=== PATIENT | male | born 1960 | race Caucasian/White ===

== ENCOUNTER 2022-07-13 10:29 | Observation (INO) ==
--- NOTE | 2022-06-16 11:20 | PAT Medication Instructions ---
Medication Instructions Date of Service June 16, 2022 Home Medications atorvastatin 20 mg tablet 20 mg PO QAM fluoxetine 10 mg tablet 10 mg PO HS levothyroxine 137 mcg tablet 137 mcg PO QAM naproxen sodium 220 mg tablet 220 mg PO BID PRN Pain omega-3 fatty acids-fish oil 684 mg-1,200 mg capsule,delayed release 1 cap PO QAM omeprazole 20 mg capsule,delayed release 20 mg PO HS tamsulosin 0.4 mg capsule 0.4 mg PO HS ASK your surgeon for instructions naproxen sodium 220 mg tablet 220 mg PO BID PRN Pain STOP taking 2 weeks before surgery (or as soon as possible if surgery is within 2 weeks) omega-3 fatty acids-fish oil 684 mg-1,200 mg capsule,delayed release 1 cap PO QAM Take morning of surgery With a small sip of water, OTHERWISE NOTHING TO EAT OR DRINK AFTER MIDNIGHT: atorvastatin 20 mg tablet 20 mg PO QAM levothyroxine 137 mcg tablet 137 mcg PO QAM Take evening before surgery fluoxetine 10 mg tablet 10 mg PO HS omeprazole 20 mg capsule,delayed release 20 mg PO HS tamsulosin 0.4 mg capsule 0.4 mg PO HS Other Notes If you have any questions please call us at [phone] or [phone] or [phone] or [phone]
--- NOTE | 2022-06-22 11:03 | Anesthesiology Consultation ---
Date of Service June 22, 2022 Assessment & Plan (1) Encounter for pre-operative examination: - Outpatient joint assessment: Patient is currently scheduled for inpatient pathway. If re-evaluated pending system levels during current pandemic/surgeon requests outpatient pathway, patient is acceptable candidate for outpatient joint program from anesthesia standpoint pending surgeon's office assessment of pt motivation/support/completion of same day joint program preop requirements. Chart Review Chart Review: Acceptable Risk for Surgery and Patient seen in Pre Admission Testing Teaching & Discussion Pre-Anesthesia Teaching/Discussion Notes: Instructed NPO after midnight before surgery, except medications with 15 cc of water. Medication instructions provided according to the PAT guidelines. History Surgery Operation Date: 07/13/22 08:50 Proposed Procedures p Right Total Knee Arthroplasty - Maurilio Myers MD Height/Weight Height: 5 ft 11 in Weight: 107.7 kg Allergies Allergy/AdvReac Type Severity Reaction Status Date / Time Penicillins Allergy Mild Rash Verified 06/16/22 08:33 Medications Home Medications Medication Instructions Recorded Confirmed Last Taken atorvastatin 20 mg tablet 20 mg PO QAM 06/16/22 06/16/22 Unknown fluoxetine 10 mg tablet 10 mg PO HS 06/16/22 06/16/22 Unknown levothyroxine 137 mcg tablet 137 mcg PO QAM 06/16/22 06/16/22 Unknown naproxen sodium 220 mg tablet 220 mg PO BID PRN Pain 06/16/22 06/16/22 Unknown omega-3 fatty acids-fish oil 684 1 cap PO QAM 06/16/22 06/16/22 Unknown mg-1,200 mg capsule,delayed release omeprazole 20 mg capsule,delayed 20 mg PO HS 06/16/22 06/16/22 Unknown release tamsulosin 0.4 mg capsule 0.4 mg PO HS 06/16/22 06/16/22 Unknown Past Medical History Medical History (Updated 06/22/22 @ 11:04 by Emelina Whitney PA-C) Anxiety BPH (benign prostatic hyperplasia) GERD (gastroesophageal reflux disease) controlled, stable per pt H/O Mohs micrographic surgery for skin cancer right shoulder History of COVID-19 dx July 2021 - mild symptoms-denies hospitalization-symptoms fully resolved Hx of basal cell carcinoma Hyperlipidemia Hypothyroidism Patient denies h/o stroke, seizures, heart attack, heart failure, DM, HTN, blood clots or blood transfusions. Exercise / Class Metabolic Activity II 4-5 Yardwork/Stairs/Walk up hill (denies chest discomfort or shortness of breath with 1 FOS) Past Family History Family History Other No family history of adverse response to anesthesia Past Surgical History Surgical History H/O shoulder surgery right shoulder seperation repair H/O wisdom tooth extraction History of colonoscopy History of tonsillectomy Past Anesthesia History No Hx of Anesthesia Complications and No Family Hx of Anesthesia Complications History of PONV No Hx of PONV and No Hx of Motion Sickness Social History Smoking Status: Never smoker Do You Dip or Chew Tobacco: No Hx Alcohol Use: No Hx Substance Use: No substance use type: does not use Review of Systems Snoring, denies witnessed apneas. Patient denies chest pain, shortness of breath, dyspnea on exertion, fever, chil ls, cough, wheezing, or palpitations. Physical Exam Vital Signs Vitals BP 132/83 P 75 SP02 95% on RA RESP 18 Physical Full cervical extension range of motion without pain TMD 3.5 finger breadths Mallampati Score 3, small oral opening Dentition: implants-upper left and lower right sides and one cap; denies chipped or loose teeth or bridges Lungs: normal respiratory effort. Clear throughout to auscultation, no adventitious breath sounds Cardiac: regular rate and rhythm, no murmurs noted Carotid arteries: negative bruit bilat Lab Results Anesthesia Preop Results Results Anesthesia Widget: WBC 8.66 K/ul (4.8-10.8) 06/22/22 Hgb 14.2 g/dl (14.0-18.0) 06/22/22 Hct 40.3 % (42.0-52.0) L 06/22/22 Plt 215 K/uL (130-400) 06/22/22 Na 136 mmol/L (136-145) 06/22/22 K 4.2 mmol/L (3.5-5.1) 06/22/22 Cl 102 mmol/L (98-107) 06/22/22 CO2 29 mmol/L (21-32) 06/22/22 BUN 14 mg/dl (6-23) 06/22/22 Creat 0.75 mg/dl (0.6-1.4) 06/22/22 Glucose Level 104 mg/dl (70-99(Fasting)) H 06/22/22 PT 11.0 Seconds (9.0-12.0) 06/22/22 PTT 25.7 Seconds (21.0-31.0) 06/22/22 INR 1.0 (0.9-1.1) 06/22/22 Blood Type B Positive 06/22/22 Antibody Screen NEGATIVE 06/22/22 Testing Electrocardiogram Date: 06/22/22 NSR, rate 65 bpm Chest X-Ray Date: 06/22/22 No prior studies are available for comparison at the time of dictation. The cardiomediastinal silhouette is unremarkable. Nonspecific interstitial thick ening is likely chronic. There is mild bibasilar scarring/atelectasis. The lungs and pleural spaces are otherwise clear. There is no pneumothorax. The bony thorax appears intact. Degenerative change is noted in the spine. IMPRESSION: No active disease in the chest. COVID-19 Risk Screen Screening Information COVID-19 Screen Date: 06/22/22 Exposure 21 Days Family/Household +COVID Last 21 Days: No Exposure 10 Days Any COVID Exposure Last 10 Days: No Symptoms Last 10 Days Experienced COVID Sx Last 10 Days: No + COVID 0-90 Days COVID + in Last 0-90 Days: No
--- NOTE | 2022-07-09 08:13 | History and Physical Report ---
CHIEF COMPLAINT: Persistent progressive right knee pain and discomfort. HISTORY OF PRESENT ILLNESS: The patient is a 62-year-old gentleman who presents for surgical treatment of his right knee. He has got a long history of right knee pain and discomfort and describes it has gotten worse over time. He does have an injury to this knee years ago, but never really got treated. He had been diagnosed with chronic ACL deficiency and progressive underlying arthritis over the years. He has undergone extensive conservative care including injections, which have become less successful over time. He describes global pain. The more he walks, the more it hurts. He would like to proceed with surgical management. He does have some known hip arthritis on this side as well. PAST MEDICAL HISTORY: Significant for: 1. Elevated cholesterol. 2. Gastroesophageal reflux disease. 3. Right shoulder surgery for a Mohs surgery. PAST SURGICAL HISTORY: Includes: 1. Right shoulder AC joint separation done by Dr. Mac 10 years ago. 2. Skin cancer removal. ALLERGIES: PENICILLIN, WHICH CAUSES A RASH. CURRENT MEDICATIONS: Include: 1. Lipitor. 2. Prozac. 3. Levothyroxine. 4. Tamsulosin. SOCIAL HISTORY: A 62-year-old male. He is . Does not smoke. FAMILY HISTORY: Noncontributory. REVIEW OF SYSTEMS: Negative for diabetes, neurologic problem, vascular problems. No chest pain or shortness of breath. No history of DVT or PE. PHYSICAL EXAMINATION: GENERAL: Shows a pleasant middle-aged male. Looks to be in pretty good health. HEENT: Benign. NECK: Supple. No lymphadenopathy. LUNGS: Clear to auscultation. HEART: Has a regular rate and rhythm. ABDOMEN: Soft, nontender, nondistended. EXTREMITIES: Grossly neurovascularly intact except as follows. Examination of the right knee reveals patient ambulates independently. He has got varus alignment to his knee. He has got a small knee effusion. Range of motion about 5 degrees short of full extension to 125 degrees of flexion. He has got a soft endpoint to his Maggi test. No pivot. No varus or valgus instability. Examination of the right hip reveals slightly limited motion. Internal rotation to 10 degrees. Some mild pain with this. Negative straight leg raise. X-RAYS: X-rays of the right knee reviewed. It shows advanced right knee degenerative joint disease. He has got near complete loss of his medial joint space. He has got osteophytes medially and subchondral sclerosis. He has got a little bit of tibial femoral subluxation. On the lateral film, his tibia subluxated anteriorly. X-rays of the pelvis was reviewed. Showed some mildly advanced hip arthritis. 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 He has failed conservative care. He has got some mild to moderate hip arthritis as well, but the knee is worse. He would like to have his knee fixed. PLAN: We will proceed with right knee replacement. The risks and benefits of this procedure were explained to the patient and include but not limited to DVT, PE, , infection, neurological injury, vascular injury, bleeding problem, pain, limited range of motion, stiffness, failure to relieve symptoms, incomplete relief of symptoms, etc. The patient understands and desires to proceed. Informed consent was obtained. As far as discharge plans, he is planning to be discharged to home using [facility] program. Job ID: [id number] [facility]
[~2022-07-13 10:29] MED LIST: ACETAMINOPHEN 500 MG TAB PO SCH; BUPIVACAINE 0.5 % 5 MG/1 ML PF 10ML VIAL ONE; BUPIVACAINE LIPOSOME/PF 266 MG, BUPIVACAINE/EPINEPHRINE 50 ML, SODIUM CHLORIDE 0.9% PF ... INFIL SCH; CeleBREX 200 MG CAP PO SCH; FAMOTIDINE 20 MG TAB PO SCH; LR 500ML BOLUS, THEN 15ML/HR IV SCH; LR 60ML/HR IV SCH; METOCLOPRAMIDE HCL 10 MG TABLET PO SCH; ROPIVACAINE 0.5% 5 MG/ML 30 ML VIAL ONE; Scopolamine 1 MG TDSY TD SCH; TRANEXAMIC ACID 1,000 MG **IV Intra-op IV SCH; ceFAZolin 2000MG 2,000 MG/15 ML SYR IV SCH; dexAMETHasone**PF** 10 MG/ML VIAL IV SCH
--- NOTE | 2022-07-13 11:01 | History & Physical Bridge Note ---
Date of Service July 13, 2022 History & Physical Bridge Note I have examined the patient, reviewed the History & Physical and in the interval since the performance of the History & Physical I have noted the following changes of clinical significance: no changes noted
[2022-07-13] MEDS ORDERED: fentaNYL citrate PF 100 MCG/2 ML VIAL IV PRN (11:44)
[2022-07-13] MEDS ORDERED: ATROPINE SULFATE 0.1 MG/ML 10ML SYR IV PRN (11:44)
[2022-07-13] MEDS ORDERED: ePHEDrine sulfate 50 MG/ML AMP IV PRN (11:44)
[2022-07-13] MEDS ORDERED: ONDANSETRON INJ 2 MG/ML 2 ML VIAL IV PRN ×2 (11:44→17:50)
[2022-07-13] MEDS ORDERED: PROPOFOL IV EMULSION 10 MG/ML 20 ML VIAL IV ONE (11:46)
[2022-07-13] MEDS ORDERED: fentaNYL citrate PF 100 MCG/2 ML VIAL ONE (11:46)
[2022-07-13] MEDS ORDERED: MIDAZOLAM HCL 1 MG/ML 2ML VIAL ONE (11:46)
[2022-07-13] MEDS ORDERED: SODIUM CHLORIDE 0.9% PF 50 ML VIAL ONE (12:53)
[2022-07-13] MEDS ORDERED: BUPIVACAINE/EPINEPHRINE 0.25% 1:200,000 30 ML VIAL ONE (12:53)
[2022-07-13] MEDS ORDERED: BUPIVACAINE LIPOSOME 1.3% 266 MG/20 ML VIAL ONE (12:54)
--- NOTE | 2022-07-13 15:01 | Operative Report ---
PG Post Operative Report Pre & Post Diagnosis Operation Date: 07/13/22 12:30 Pre-Op Diagnosis: Right Knee Advanced Degenerative Joint Disease Post-Op Diagnosis: Right Knee Advanced Degenerative Joint Disease I identified the patient and participated in the time-out.: Yes Procedure Operation Date: 07/13/22 12:30 Actual Procedures p Right Total Knee Arthroplasty(Right) - Maurilio Myers MD Surgeon Maurilio Myers MD Equipment Validation Specialist Dexter Carroll PA-C Estimated Blood Loss 50 Findings Consistent with Post-Op Diagnosis Operative findings were advanced right knee medial compartment DJD. He had full-thickness cartilage loss medially. He had some spotty grade 4 changes of the patella femoral compartment as well as the lateral compartment. He had chronic ACL deficiency. Moderate-sized joint effusion. Specimens Right knee sent for pathology Anesthesia Type Spinal MAC Complications none Disposition Accompanied Patient To Recovery: No Indications Patient is 62-year-old fairly active gentleman has had a several year history of increasing right knee pain discomfort. He is got a known history of ACL deficiency. Over the years he developed increasing pain discomfort and progressive joint space loss. He failed conservative measures. He elected proceed with total knee arthroplasty. Description of Procedure Operative implants consist of: 1 Biomet Vanguard size 72.5 right posterior stabilized femoral component. 2. Biomet size 75 tibial tray. 3. 10 mm posterior stabilized polyethylene insert. 4. 34 x 8 and half all poly patella. Patient was taken to the operating room, identified, placed on the operating table supine position protectors were properly padded. IV antibiotics tried by anesthesia team. A spinal anesthetic and abductor canal block had provided holding area. Fuentes catheter was placed in sterile fashion. Right thigh high tourniquet was then placed in the right lower extremities and prepped and draped in usual sterile fashion. The right leg was elevated exsanguinated with the use of an Esmarch and the tourniquet was placed at 300 mmHg. An anterior approach of the right knee was then performed to longitudinal incision centered over the patella. Sharp dissection was carried through subcutaneous tissue down the extensor mechanism. A medial parapatellar arthrotomy incision was made. Some subperiosteal dissection was carried out medially. The fat pad was resected from Neath patella tendon. Lateral patellofemoral ligament was released. Patella subluxated laterally and the knee was flexed. The osteophytes taken off the distal femur. The ACL was absent. The PCL was released from the distal femur and the tibia subluxated anteriorly. The external tibial alignment jig was then placed in the interface the tibia and adjusted 14 mm medially. Proximal tibial cut was then made to remove about a millimeter of bone at most from the most deficient aspect of the posterior medial tibial plateau. Some osteophytes taken off medially. The tibia sized to a size 75. Attention drawn the femur. The distal femur examined the sharp drop with intramedullary canal was suction. A right 6 degree valgus cutting guide was placed. Distal femoral cutting block was pinned in place. Distal femoral cut was made to take an additional 3 mm of bone off distal femur. The femur was then sized to a size 72.5. The AP cutting block was pinned parallel to the epicondylar axis which was 3 degrees of external rotation. Anterior cut, anterior chamfer, posterior cut, posterior chamfer cuts were made. The box cutting guide was placed in just slight lateral and the box cut was made. The knee was flexed. The remnants of the medial and lateral menisci were excised. The osteophytes taken off the posterior aspect the femur. Trial femoral component was placed. Tibial tray was pinned in maximum external rotation and the drill and stem punch used to create defect in proximal tibia for the tibial tray. The knee was then trialed and the 10 mm insert fit most appropriately. Attention drawn the patella. The patella was cleaned of all soft tissues. Patella thickness measured 26 mm in thickness was cut down to 15. Was sized to a size 34 patella. The lug holes were drilled for the 34 patella. Lateral osteophytes removed. Patella button was placed. Knee was taken through range of motion patella tracked nicely with no thumbs test. Attention drawn to placing permanent components. Nupathe all trial components were removed. Bone plug was placed into the distal femur limit blood loss. Double batch Palacos G cement was mixed. Biomet Vanguard size 72.5 right posterior stabilized femoral component, size 75 tibial tray, a 10 mm posterior stabilized polyethylene insert, and a 34 x 8 and half all Paller patella then cemented in place. Knee was brought out in full extension till cement hardened. Final cement check was then performed. The pericapsular tissues were injected with total 100 cc of combination of 20 cc of Exparel, 30 cc normal saline, 50 cc of quarter percent Marcaine with epinephrine. Patient did receive 1 g tranexamic acid. The tourniquet was let down for final tourniquet time 60 minutes. Hemostasis assured use electrocautery. The extensor mechanism then closed with combination 1 PDS suture #1 Vicryl suture in a [id number] fashion. Extensor mechanism checked found to be intact with subcutaneous tissue then closed with 2 Dexon suture in a buried interrupted fashion skin was closed skin eve. Leg was then cleaned and dried and sterile dressed with Xeroform, 4 fours, sterile cast padding, Santy bandage were applied. The patient then transferred to the recovery room in stable condition. Patient tolerated the procedure well and there were no complications. Dexter Carroll, my physician assistant cross country coach, was present for the entire procedure. His assistance was essential and required for appropriate patient positioning, prepping and draping, surgical exposure, performing the technical details of the operation, placement the implants, closure of the wound, and placement of the sterile bandage. I attest to the content of the Intraoperative Record and any orders documented therein. Any exceptions are noted below.
--- NOTE | 2022-07-13 15:18 | XRay Report ---
RIGHT KNEE 2 VIEWS History: Right total knee arthroplasty. Degenerative arthritis. Postop. FINDINGS: The patient is status post a right total knee arthroplasty. The hardware is intact. No frac ture or dislocation. Skin eve are in place. IMPRESSION: Right total knee arthroplasty. No evidence for hardware complication. ACT 112: Negative or not required by law. Electronically signed by: Hasmukh Armas M.D. 07/13/2022 3:17 PM
[2022-07-13] MEDS: Scopolamine CHECK PATCH PLACEMENT SCH (17:45)
--- NOTE | 2022-07-13 17:45 | Anesthesiology Progress Note ---
Date of Service July 13, 2022 Anesthesia Post Procedure Vital Signs Vital Signs: Temp Pulse Pulse Resp BP Pulse Ox O2 Del Method 07/13/22 17:30 56 L 14 105/64 95 Room Air 07/13/22 17:15 61 14 113/66 97 Nasal Cannula 07/13/22 17:00 60 16 100/62 97 Nasal Cannula 07/13/22 16:45 63 13 108/64 96 Nasal Cannula 07/13/22 16:30 64 17 109/66 96 Nasal Cannula 07/13/22 16:15 63 14 107/68 96 Nasal Cannula 07/13/22 16:00 36.4 C L 63 14 113/65 96 Nasal Cannula 07/13/22 15:50 63 14 107/62 97 Nasal Cannula 07/13/22 15:40 62 10 L 101/66 97 Nasal Cannula 07/13/22 15:30 65 12 115/69 96 Nasal Cannula 07/13/22 15:20 71 16 119/62 95 Nasal Cannula 07/13/22 15:10 74 20 116/65 97 Oxymask 07/13/22 15:01 36.7 C 80 22 113/60 95 Oxymask 07/13/22 10:58 36.7 C 85 18 140/87 95 Room Air O2 Flow Rate 07/13/22 17:30 07/13/22 17:15 2 07/13/22 17:00 2 07/13/22 16:45 2 07/13/22 16:30 2 07/13/22 16:15 2 07/13/22 16:00 2 07/13/22 15:50 2 07/13/22 15:40 2 07/13/22 15:30 2 07/13/22 15:20 2 07/13/22 15:10 6 07/13/22 15:01 6 07/13/22 10:58 Pain Intensity Right Knee: Pain Intensity: 0 Transfer of Care Handoff Completed per policy Notes Mental Status: alert / awake / arousable and participated in evaluation Patient Amnestic to Procedure: Yes Nausea / Vomiting: adequately controlled Pain: adequately controlled Airway Patency, RR, SpO2: stable & adequate BP & HR: stable & adequate Hydration State: stable & adequate Neuraxial Anesthesia: was administered and sensory block is resolving Anesthetic Complications: no major complications apparent and Pt Satisfied with anesthetic care
[2022-07-13] MEDS ORDERED: METOCLOPRAMIDE HCL INJ 5 MG/ML 2 ML VIAL IV PRN (17:50)
[2022-07-13] MEDS ORDERED: bisacodyL 10 MG SUPP PR PRN (17:50)
[2022-07-13] MEDS ORDERED: NALOXONE HCL 0.4 MG/1 ML VIAL/CARP IV PRN (17:50)
[2022-07-13] MEDS ORDERED: oxyCODONE HCL IR 5 MG TAB (IMMEDIATE RELEASE) PO PRN (17:50)
[2022-07-13] MEDS ORDERED: diphenhydrAMINE Capsule 25 MG CAP PO PRN (17:50)
[2022-07-13] MEDS ORDERED: HYDROmorphone INJ 0.5 MG/0.5 ML SYR IV PRN (17:50)
[2022-07-13] MEDS ORDERED: ALUMINUM/MAGNESIUM SUSP 30 ML UDC PO PRN (17:50)
[2022-07-13] MEDS ORDERED: MAGNESIUM HYDROXIDE SUSP 30 ML UDC PO PRN (17:50)
[2022-07-13] MEDS: SODIUM CHLORIDE 0.9% 1000ML 1,000 ML IV SCH (18:04)
[2022-07-13] MEDS: KETOROLAC 30 MG/ML VIAL IV SCH (18:33)
[2022-07-13] MEDS: ASCORBIC ACID 500 MG TAB PO SCH (18:55)
[2022-07-13] MEDS: ACETAMINOPHEN 500 MG TAB PO SCH (20:20)
[2022-07-13] MEDS: DOCUSATE SODIUM 100 MG CAP PO SCH (20:21)
[2022-07-13] MEDS: ASPIRIN 81 MG ECTAB PO SCH (20:21)
[2022-07-13] MEDS: SENNA 8.6 MG TAB PO SCH (20:22)
[2022-07-13] MEDS ORDERED: SENNA 8.6 MG TAB PO SCH (21:00)
[2022-07-13] MEDS ORDERED: FLUoxetine HCL 10 MG CAP PO SCH (21:00)
[2022-07-13] MEDS ORDERED: TAMSULOSIN HCL 0.4 MG CAP PO SCH (21:00)
[2022-07-13] MEDS ORDERED: PANTOprazole 40 MG TAB PO SCH (21:00)
[2022-07-13] MEDS ORDERED: TRANEXAMIC ACID / 0.7% NACL 1,000 MG/100 ML BAG IV SCH (21:00)
[2022-07-13] MEDS: ceFAZolin 2000MG 2,000 MG/15 ML SYR IV SCH (21:21)
[2022-07-14] MEDS: Scopolamine CHECK PATCH PLACEMENT SCH ×2 (00:08→09:16)
[2022-07-14] MEDS: KETOROLAC 30 MG/ML VIAL IV SCH ×2 (00:39→06:05)
[2022-07-14] MEDS: ceFAZolin 2000MG 2,000 MG/15 ML SYR IV SCH (04:17)
[2022-07-14] MEDS: SODIUM CHLORIDE 0.9% 1000ML 1,000 ML IV SCH (04:24)
[2022-07-14] MEDS ORDERED: LEVOTHYROXINE SODIUM 137 MCG TABLET PO SCH (06:30)
[2022-07-14 06:54] LABS: Hematocrit (blood only) 36.2 % (42.0-52.0); Hemoglobin 12.3 g/dl (14.0-18.0); Mean Corpuscular Hemoglobin 29.4 pg (25.0-34.0); Mean Corpuscular Volume 86.4 fL (80.0-100.0); Mean Platelet Volume 9.5 fL (9.4-12.4); Platelet Count 228 K/uL (130-400); RDW Coefficient of Variation 13.3 % (11.5-14.5); RDW Standard Deviation 41.9 fL (36.4-46.3); Red Blood Count 4.19 M/uL (4.70-6.10); White Blood Count 14.49 K/ul (4.8-10.8)
[2022-07-14 07:09] LABS: BUN Creatinine Ratio 21.1 (10-20); Creatinine Clr Calc Pharmacy 123.1 ml/min; Est GFR (African American) 111.7 ml/min; Est GFR (Non-African American) 96.4 ml/min; Potassium 4.2 mmol/L (3.5-5.1)
[2022-07-14] MEDS ORDERED: dexAMETHasone 10 MG in SYRINGE 0 ML IV SCH (08:00)
[2022-07-14] MEDS ORDERED: GLUCAGON FOR INJ 1 MG VIAL SQ PRN (08:43)
[2022-07-14] MEDS ORDERED: CARBOHYDRATES FOR HYPOGLYCEMIA PO PRN (08:43)
[2022-07-14] MEDS ORDERED: DEXTROSE 50% 50 ML SYRINGE IV PRN (08:43)
[2022-07-14] MEDS ORDERED: PHARMACY GLYCEMIC MGMT CONSULT PRN (08:43)
[2022-07-14] MEDS ORDERED: GLUCOSE 10 TAB/TUBE PO PRN (08:43)
[2022-07-14] MEDS ORDERED: GLUCOSE 40% GEL 15 GM TUBE PO PRN (08:43)
[2022-07-14] MEDS ORDERED: ATORVASTATIN 20 MG TAB PO SCH (09:00)
[2022-07-14] MEDS ORDERED: MULTIVITAMIN TAB PO SCH (09:00)
[2022-07-14] MEDS ORDERED: OMEGA-3 (PURIFIED FISH OIL) 1 GM CAP PO SCH (09:00)
[2022-07-14] MEDS ORDERED: LANTUS PER UNIT CHARGE SC SCH (09:00)
[2022-07-14] MEDS: INSULIN ASPART PER UNIT CHARGE SC SCH ×2 (09:16→12:15)
[2022-07-14] MEDS: SENNA 8.6 MG TAB PO SCH (09:20)
[2022-07-14] MEDS: ACETAMINOPHEN 500 MG TAB PO SCH (09:20)
[2022-07-14] MEDS: ASPIRIN 81 MG ECTAB PO SCH (09:21)
[2022-07-14] MEDS: ASCORBIC ACID 500 MG TAB PO SCH (09:22)
[2022-07-14] MEDS: DOCUSATE SODIUM 100 MG CAP PO SCH (09:27)
--- NOTE | 2022-07-14 09:29 | Pharmacy Report ---
Pharmacy Glycemic Short Note 2 - Date of Service July 14, 2022 - Glycemic Short BSG Results (Last 24 hours): 07/14/22 05:58 Glucose 210 H OUTPATIENT ANTIDIABETIC REGIMEN: * N/A * HbA1c: ___ ASSESSMENT: * 62 y/o M who underwent R Total knee replacement yesterday. Patient does not seem to have a history of diabetes; he was not on any anti-diabetic meds prior to admission. * He received IV Dexamethasone 10 mg x 1 dose around 11 am in the OR yesterday. No blood sugars were obtained yesterday. * Today AM fasting BSG = 210 mg/dl and pharmacy is now consulted for glycemic management. * Since patient does not seem to be a diabetic and IV steroid dose was given almost 24 hrs ago and based on only one BSG value, basal insulin 10 units, between stress of 1 and 2, ordered for this AM. Novolog ordered with breakfast, parameters based on stress of 2. Used adjusted body wt in calculations. * Pre-lunch BSG trended down to 99 mg/dl. Therefore, Lantus ordered discontinued and Novolog parameters loosened with dinner. * Re-assess basal tomorrow. PLAN FOR INPATIENT GLYCEMIC CONTROL: * Basal insulin * Lantus 10 units SQ x1 today AM then discontinued. * Bolus insulin * NovoLog per scale ACHS or Q6hrs while NPO * Goal Range: Low 110 mg/dL - High 140 mg/dL * Correction Factor: 40 mg/dL/unit * Nutritional / Prandial insulin per carb ratio of 1 unit per 15 grams CHO consumed
--- NOTE | 2022-07-14 12:15 | Progress Notes ---
SUBJECTIVE: A 62-year-old gentleman, postop day 1 from right knee replacement. He is doing pretty w ell. He is having some pain but manageable. Medicine helps. No chest pain or shortness of breath. Not feeling dizzy or lightheaded. Hoping to go home today. OBJECTIVE: VITAL SIGNS: Temperature 36.5. Vital signs stable. GENERAL: Physical examination shows a pleasant middle aged male. He is sitting up in bed, looks luan te comfortable. LUNGS: Clear to auscultation. HEART: Regular rate and rhythm. ABDOMEN: Soft, nontender, and nondistended. EXTREMITIES: Grossly neurovascularly intact except as follows. Examination of the right leg reveals the dressing to be clean, dry, and intact. He can dorsiflex and plantarflex his foot appropriately. He cannot quite do a straight leg raise. LABORATORY DATA: Hemoglobin 12.3, hematocrit 36.2, and electrolytes are stable. ASSESSMENT: A 62-year-old gentleman postoperative day 1 from a right knee replacement, doing well. Pain is controlled. He is neurologically intact. PLAN: 1. DVT prophylaxis including thigh-high TEDs, SCDs, and aspirin twice a day. 2. PT/OT, weightbear as tolerated. Right total knee protocol. 3. Pain control, doing okay with current pain regimen. 4. Disposition: Plan to discharge to home with some home health today. Job ID: [id number]
== END 2022-07-14 13:57 | disposition home health service (06) ==
LOC: 3E 10:29 → ASU 10:29

== ENCOUNTER 2024-02-28 05:17 | Observation (INO) ==
--- NOTE | 2024-01-30 16:19 | PAT Medication Instructions ---
Medication Instructions Date of Service January 30, 2024 Home Medications atorvastatin 20 mg tablet 20 mg PO QAM fluoxetine 10 mg tablet 10 mg PO HS levothyroxine 137 mcg tablet 137 mcg PO QAM omeprazole 20 mg capsule,delayed release 20 mg PO HS tamsulosin 0.4 mg capsule 0.4 mg PO HS clindamycin HCl 300 mg capsule 600 mg PO UD PRN coQ10 (ubiquinol) 100 mg capsule 0 mg PO DAILY Continue as directed clindamycin HCl 300 mg capsule 600 mg PO UD PRN(if needed) STOP taking 2 weeks before surgery (or as soon as possible if surgery is within 2 weeks) coQ10 (ubiquinol) 100 mg capsule 0 mg PO DAILY Take morning of surgery With a small sip of water, OTHERWISE NOTHING TO EAT OR DRINK AFTER MIDNIGHT: atorvastatin 20 mg tablet 20 mg PO QAM levothyroxine 137 mcg tablet 137 mcg PO QAM Take evening before surgery fluoxetine 10 mg tablet 10 mg PO HS omeprazole 20 mg capsule,delayed release 20 mg PO HS tamsulosin 0.4 mg capsule 0.4 mg PO HS Other Notes If you have any questions please call us at [phone] or [phone] or [phone] or [phone]
--- NOTE | 2024-02-02 13:11 | Anesthesiology Consultation ---
Date of Service February 02, 2024 Assessment & Plan (1) Encounter for pre-operative examination: - Infectious disease screening: Per assessment on 02/02/24- No known recent infectious disease contacts or current infectious disease symptoms. - Outpatient joint assessment: Pt currently scheduled for inpatient pathway. If surgeon requests review for outpatient joint pathway, patient is not recommended candidate for outpatient joint program from anesthesia standpoint based on available information. - S/P Left shoulder arthroscopy (07/14/23): LMA#5 + regional at [facility] [place] Chart Review Chart Review: Acceptable Risk for Surgery and Patient seen in Pre Admission Testing Teaching & Discussion Pre-Anesthesia Teaching/Discussion Notes: Instructed NPO after midnight before surgery,except medications with 15 cc of water. Medication instructions provided according to the PAT guidelines. History Surgery Operation Date: 02/28/24 07:00 Proposed Procedures p Right Total Hip Arthroplasty - Maurilio Myers MD Height/Weight Height: 5 ft 11 in Weight: 109 kg Allergies Allergy/AdvReac Type Severity Reaction Status Date / Time amoxicillin Allergy Unknown Rash Verified 01/30/24 15:28 Penicillins Allergy Unknown Rash Verified 01/30/24 15:28 Medications Home Medications Medication Instructions Recorded Confirmed Last Taken atorvastatin 20 mg tablet 20 mg PO QAM 06/16/22 01/30/24 07/13/23 fluoxetine 10 mg tablet 10 mg PO HS 06/16/22 01/30/24 07/13/23 levothyroxine 137 mcg tablet 137 mcg PO QAM 06/16/22 01/30/24 07/13/23 omeprazole 20 mg capsule,delayed 20 mg PO HS 06/16/22 01/30/24 07/13/23 release tamsulosin 0.4 mg capsule 0.4 mg PO HS 06/16/22 01/30/24 07/13/23 clindamycin HCl 300 mg capsule 600 mg PO UD PRN pre dental 06/28/23 01/30/24 Unknown coQ10 (ubiquinol) 100 mg capsule 0 mg PO DAILY 01/30/24 01/30/24 Unknown Past Medical History Medical History (Updated 02/02/24 @ 13:40 by Citlaly Glasgow) Anxiety Arthritis of right hip BPH (benign prostatic hyperplasia) GERD (gastroesophageal reflux disease) Controlled, stable per pt History of COVID-19 07/2021- mild symptoms, resolved Hx of basal cell carcinoma Hyperlipidemia Hypothyroidism Pre-diabetes Sensorineural hearing loss (SNHL) of both ears Per records: Borderline normal sloping to severe AU Sleep apnea "Mild-moderate" per home sleep study, has not had follow-up in-lab sleep study yet Exercise / Class Metabolic Activity II 4-5 Yardwork/Stairs/Walk up hill (one FS: No CP, no SOB) Past Family History Family History Other No family history of adverse response to anesthesia Past Surgical History Surgical History H/O Mohs micrographic surgery for skin cancer right shoulder H/O shoulder surgery right shoulder seperation repair H/O wisdom tooth extraction History of colonoscopy History of repair of left rotator cuff Left shoulder arthroscopy (07/14/23): LMA#5 + regional at [facility] [place] History of tonsillectomy History of total right knee replacement 07/2022 Past Anesthesia History No Hx of Anesthesia Complications and No Family Hx of Anesthesia Complications History of PONV No Hx of PONV and No Hx of Motion Sickness Social History Smoking Status: Never smoker Do You Dip or Chew Tobacco: No Hx Alcohol Use: No Hx Substance Use: No substance use type: does not use Review of Systems Patient denies chest pain, shortness of breath, dyspnea on exertion, fever, chills, cough, wheezing, palpitations. Physical Exam Vital Signs BP 117/75 P 68 TEMP 97.9 SP02 95%RA RESP 18 Physical Full cervical extension range of motion. Full TMJ range of motion. TMD > 3.5 finger breaths Mallampati Score III Dentition: intact, + implants Lungs: clear throughout to auscultation Cardiac: regular rate and rhythm, no murmurs noted Spine: normal Carotid arteries: negative bruit Extremities: no LE edema Lab Results Anesthesia Preop Results Results Anesthesia Widget: WBC 6.41 K/ul (4.8-10.8) 02/02/24 Hgb 13.9 g/dl (14.0-18.0) L 02/02/24 Hct 41.1 % (42.0-52.0) L 02/02/24 Plt 225 K/uL (130-400) 02/02/24 Na 139 mmol/L (136-145) 02/02/24 K 4.3 mmol/L (3.5-5.1) 02/02/24 Cl 104 mmol/L (98-107) 02/02/24 CO2 29 mmol/L (21-32) 02/02/24 BUN 14 mg/dl (6-23) 02/02/24 Creat 0.72 mg/dl (0.6-1.4) 02/02/24 Glucose Level 105 mg/dl (70-99(Fasting)) H 02/02/24 PT 11.1 Seconds (9.0-12.0) 02/02/24 PTT 26 Seconds (21-31) 02/02/24 INR 1.0 (0.9-1.1) 02/02/24 Blood Type B Positive 02/02/24 Antibody Screen NEGATIVE 02/02/24 Testing Electrocardiogram Date: 07/11/23 SB at 59bpm. "Otherwise normal ECG" Chest X-Ray Date: 02/02/24 Findings: + NAD
--- NOTE | 2024-02-23 07:56 | History & Physical Report ---
Date of Service February 23, 2024 Assessment & Plan (1) Arthritis of right hip: 64-year-old male last status post right knee replacement on fairly recent shoulder surgery with advanced right hip arthritis. This has progressed. He is failed conservative measures. He like to have his right hip fixed. Plan: We are going to take him to the operating do a right total hip replacement. The risks and the benefits of this procedure explained to the patient in depth. He understands and would like to proceed. He is planning to discharge to home using home health program. Will use aspirin for DVT prophylaxis. (2) GERD (gastroesophageal reflux disease): (3) BPH (benign prostatic hyperplasia): (4) Pre-diabetes: (5) Hyperlipidemia: (6) Hypothyroidism: History of Present Illness Chief Complaint: . Persistent progressive right hip pain and discomfort and stiffness. Primary Care Provider: Glen Grande MD . The patient is a 64-year-old gentleman who works for [employer] presents for surgical treatment of his right hip. He is got a long history of joint problems I replaced his right knee back in July of last year. At that time the new he had significant hip arthritis but his knee was bothering more. He got through his knee replacement and subsequently had left shoulder rotator cuff repair by Dr. Novak in July. Recovered from this as well. He is now limited by persistent hip pain. Is got groin pain thigh pain. When he walks around campus he gets pretty played out after about 1/2-hour. He limps more as the day goes on. Shaun es medicine with minimal relief. He like to have his hip fixed. Allergies Allergy/AdvReac Type Severity Reaction Status Date / Time amoxicillin Allergy Unknown Rash Verified 01/30/24 15:28 Penicillins Allergy Unknown Rash Verified 01/30/24 15:28 Home Medications Medication Instructions Recorded Confirmed Type atorvastatin 20 mg tablet 20 mg PO M 06/16/22 01/30/24 History fluoxetine 10 mg tablet 10 mg PO HS 06/16/22 01/30/24 History levothyroxine 137 mcg tablet 137 mcg PO QA 06/16/22 01/30/24 History omeprazole 20 mg capsule,delayed 20 mg PO HS 06/16/22 01/30/24 History release tamsulosin 0.4 mg capsule 0.4 mg PO HS 06/16/22 01/30/24 History clindamycin HCl 300 mg capsule 600 mg PO UD PRN pre dental 06/28/23 01/30/24 History coQ10 (ubiquinol) 100 mg capsule 0 mg PO DAILY 01/30/24 01/30/24 History Past Med/Surg History Problem List Trigger finger of left hand Encounter for pre-operative examination Medical History Sensorineural hearing loss (SNHL) of both ears Per records: Borderline normal sloping to severe AU Arthritis of right hip Sleep apnea "Mild-moderate" per home sleep study, has not had follow-up in-lab sleep study yet Pre-diabetes Hx of basal cell carcinoma BPH (benign prostatic hyperplasia) GERD (gastroesophageal reflux disease) Controlled, stable per pt Hypothyroidism Anxiety Hyperlipidemia History of COVID-19 07/2021- mild symptoms, resolved Surgical History History of repair of left rotator cuff Left shoulder arthroscopy (07/14/23): LMA#5 + regional at [facility] [place] History of total right knee replacement 07/2022 H/O Mohs micrographic surgery for skin cancer right shoulder History of tonsillectomy H/O wisdom tooth extraction H/O shoulder surgery right shoulder seperation repair History of colonoscopy Family History Other No family history of adverse response to anesthesia Social History Smoking Status: Never smoker Second Hand Exposure: No; Do You Dip or Chew Tobacco: No; Hx Alcohol Use: No Hx Substance Use: No Preferred Language: Setswana Communication Ability: Effective Senior Application Security Consultant Required: No Beliefs That Will Affect Care: None Current Living Situation: Spouse and Family Current Living Situation Comment: and adult son Feels Safe at Home: Yes Assistive Devices: Other Review of Systems All systems reviewed & are unremarkable except as noted in HPI & below. Physical Exam . Physical examination was a pleasant middle-age male who looks in pretty good health. Examination of the right hip and leg reveal patient ambulates with a slightly antalgic gait. Leg lengths are pretty equal. He does have stiffness and pain with hip motion. He can internally rotate to neutral at best. It recreate his pain. He is neurologically intact. Examination of the knee reveals a well-healed incision. No instability. Minimal swelling. Range of motion 0-1 20. Constitutional WD/WN, vitals as above Neck trachea midline, no thyromegaly Respiratory normal respiratory effort, lungs clear to auscultation Cardiovascular RRR, no murmur, no edema Gastrointestinal (Abdomen) normal bowel sounds, soft, nontender, no hepatosplenomegaly Results & Data Results & Data Laboratory Results . Diagnostic Findings . X-rays of the right hip were reviewed. Shows advanced right hip arthritis. He is got loss of the superior joint space. He is got flattening of the femoral head. He has good cam plate impingement. This has progressed since his previous films. PG Care Time/CCT Total # of Minutes Spent Total Time Spent with Patient: Total time spent is greater than 50% in coordination of care (as documented) at patient's floor/unit and/or counseling patient: Coding Level of Care Code None Diagnoses Arthritis of right hip M16.11 GERD (gastroesophageal reflux disease) K21.9 BPH (benign prostatic hyperplasia) N40.0 Pre-diabetes R73.03 Hyperlipidemia E78.5 Hypothyroidism E03.9
[2024-02-28] MEDS: CeleBREX 200 MG CAP PO SCH (05:48)
[2024-02-28] MEDS: LR 60ML/HR IV SCH (05:48)
[2024-02-28] MEDS: FAMOTIDINE 20 MG TAB PO SCH (05:48)
[2024-02-28] MEDS: METOCLOPRAMIDE HCL 10 MG TABLET PO SCH (05:48)
[2024-02-28] MEDS: ACETAMINOPHEN 500 MG TAB PO SCH ×2 (05:48→14:02)
[2024-02-28] MEDS: LR 500ML BOLUS, THEN 15ML/HR IV SCH (05:55)
[2024-02-28] MEDS ORDERED: LIDOCAINE 2% 2 ML VIAL/AMP(20MG/ML) INFIL ONE (06:08)
[2024-02-28] MEDS ORDERED: PROPOFOL IV EMULSION 10 MG/ML 20 ML VIAL IV ONE (06:09)
[2024-02-28] MEDS ORDERED: fentaNYL citrate PF 100 MCG/2 ML VIAL ONE (06:13)
[2024-02-28] MEDS ORDERED: MIDAZOLAM HCL 1 MG/ML 2ML VIAL ONE (06:13)
[2024-02-28] MEDS ORDERED: BUPIVACAINE 0.5 % 5 MG/1 ML PF 10ML VIAL ONE (06:22)
[2024-02-28] MEDS ORDERED: MoRPHine SULFATE PF 1 MG/ML 10 ML AMP/VIAL ONE (06:37)
[2024-02-28] MEDS ORDERED: fentaNYL citrate PF 100 MCG/2 ML VIAL IV PRN (06:38)
[2024-02-28] MEDS ORDERED: ATROPINE SULFATE 0.1 MG/ML 10ML SYR IV PRN (06:38)
[2024-02-28] MEDS ORDERED: ePHEDrine sulfate 50 MG/ML AMP IV PRN ×2 (06:38→09:50)
[2024-02-28] MEDS ORDERED: ONDANSETRON INJ 2 MG/ML 2 ML VIAL IV PRN ×2 (06:38→10:11)
[2024-02-28] MEDS: TRANEXAMIC ACID 1,000 MG **IV Pre-op IV SCH (06:44)
--- NOTE | 2024-02-28 06:51 | History & Physical Bridge Note ---
Date of Service February 28, 2024 History & Physical Bridge Note I have examined the patient, reviewed the History & Physical and in the interval since the performance of the History & Physical I have noted the following changes of clinical significance: no changes noted
[2024-02-28] MEDS: ceFAZolin 2000MG 2,000 MG/15 ML SYR IV SCH ×2 (06:59→15:02)
[2024-02-28] MEDS ORDERED: PHENYLEPHRINE 100MCG/ML 5ML SYR ONE ×2 (07:08→08:20)
[2024-02-28] MEDS ORDERED: ePHEDrine sulfate 50 MG/ML AMP ONE (07:08)
[2024-02-28] MEDS ORDERED: SODIUM CHLORIDE 0.9% PF INJ 10 ML VIAL ONE (07:24)
[2024-02-28] MEDS: BUPIVACAINE/EPINEPHRINE 0.5% MPF 1:200,000 30 ML VIAL ONE (07:32)
--- NOTE | 2024-02-28 08:38 | Operative Report ---
PG Post Operative Report Pre & Post Diagnosis Operation Date: 02/28/24 07:00 Pre-Op Diagnosis: Osteoarthritis Right Hip Post-Op Diagnosis: Osteoarthritis Right Hip I identified the patient and participated in the time-out.: Yes Procedure Operation Date: 02/28/24 07:00 Actual Procedures p Right Total Hip Arthroplasty, Uncemented(Right) - Maurilio Myers MD Surgeon Maurilio Myers MD Services Rep Dexter Carroll PA-C Estimated Blood Loss 100 Findings Consistent with Post-Op Diagnosis Operative findings were advanced right hip DJD. He had grade 4 [id number] disease of the femoral head and acetabulum. He had moderate sized anterior acetabular osteophytes. Moderate-sized hip joint effusion. Specimens Right femoral head sent for pathology. Anesthesia Type Spinal MAC Complications none Disposition Accompanied Patient To Recovery: No Indications The patient is a 64-year-old fairly active gentleman whose had a long history of multiple orthopedic joint issues. He had his right knee replaced about a year and a half ago and is done well from this. He continued be bothered by right hip pain discomfort is gotten worse over time. Failed conservative measures. X-rays show advanced right hip arthritis. He elected proceed with total hip arthroplasty. Description of Procedure Operative implants consist of: 1 Biomet G7 size 56 mm acetabular shell. 2. 6.5 cancellous acetabular screws 1 at 35 mm in length and 1 of 30 mm length. 3. [place] hole pheresis specialist. 4. Highly cross-linked polyethylene liner with a 56 mm outer diameter and 36 mm inner diameter. 5. DePuy Corail size 12 KLA femoral stem. 6. +5/36 mm ceramic articular ball. The patient was taken the op room, identified, placed on the operating table in the supine position. All conductors were appropriately padded. IV antibiotics fibra anesthesia team. A spinal anesthetic had been implemented in the holding area. The patient was then placed in the left lateral cubitus position. An axillary roll was placed. A stool Birkett position was used for positioning. The right hip and leg were then prepped and draped in usual sterile fashion. A posterolateral approach to the right hip was then performed to a curvilinear incision centered over the greater trochanter. Sharp dissection was got through subcutaneous tissue dental of the IT band gluteal fascia. The IT band gluteal fascia was sized longitudinally in line with skin incision. The underlying greater troches bursa was excised. The piriformis and external rotators along with the posterior hip joint capsule were then released from the posterior aspect of the hip as a single layer. Great care was taken throughout the procedure protect the sciatic nerve at all times. Hip was internally rotated and dislocated. Femoral neck osteotomy cut was made with Final Cut about 10 mm above the lesser trochanter. Femoral head was removed and sent for pathology. The femur was retracted anteriorly. Attention then drawn the acetabulum. The acetabular labrum was excised. The pulmonary fat was excised. Sequential reaming the acetabulum was then performed beginning with a size 47 and progressing up to a 55. I reamed a little bit with a 56 reamer and then placed a 56 mm Biomet acetabular shell in about 40 degrees lateral opening and 20 degrees of anteversion. It was fixed with two 6.5 cancellous acetabular screws. An anterior osteophyte was removed. Trial liner was placed. Attention drawn the femur. The proximal femur was entered with cookie-cutter followed by canal finder. I then broached beginning with size 8 and progressing up to 12. Got excellent fitted to 12. We trialed the hip and the +5 articular ball provided full stability, appropriate soft tissue tension and stability. Leg lengths also seemed equal. We elect to place these implants. All trial implants were removed. An apex hole pheresis specialist was placed. Highly cross-linked polyethylene liner was placed. A size 12 KLA femoral stem was impacted in position. +5/36 mm ceramic articular ball was placed. Hip was located and once again found to be stable. Attention drawn toward closing. Wounds irrigated coconuts pulsatile lavage solution. I did inject locally with 60 cc of half percent Marcaine with epinephrine. The posterior capsule and external rotators removed. The drill holes in the posterior trochanter with #2 Tycron suture. The IT band gluteal fascia were then closed with #1 PDS suture in a running fashion the subcutaneous tissues then closed with 2 layers of the deep layer #1 Vicryl suture in the subcutaneous tissues with 2-0 Dexon suture in a buried interrupted fashion. The skin was closed with skin eve. The leg was then cleaned and dried and a sterile dressing was Xeroform, 4 fours, ABD pads, foam tape was applied. The patient was then transferred to the recovery room in stable condition. The patient tolerated the procedure well and there were no complications. Dexter Carroll, my physician assistant tennis professional, was present for the entire procedure. His assistance was essential and required for appropriate patient positioning, prepping and draping, surgical exposure, performing the technical details of the operation, placement the implants, closure of the wound, and placement of the sterile bandage. I attest to the content of the Intraoperative Record and any orders documented therein. Any exceptions are noted below.
--- NOTE | 2024-02-28 08:59 | XRay Report ---
XR hip 1V RT w pelvis CLINICAL HISTORY: Postoperative evaluation. COMPARISON: Right hip radiographs November 25, 2023. FINDINGS: Alignment of the total right hip arthroplasty is anatomic. No periprosthetic fracture or u nexpected radiopaque foreign body. There are skin eve. IMPRESSION: Expected findings following total right hip arthroplasty. ACT 112: Negative or not required by law. Electronically signed by: Vazquez Edwards M.D. 02/28/2024 8:57 AM
--- NOTE | 2024-02-28 09:46 | Anesthesiology Progress Note ---
Date of Service February 28, 2024 Anesthesia Post Procedure Vital Signs Vital Signs: Temp Pulse Pulse Resp BP Pulse Ox O2 Del Method 02/28/24 09:35 77 15 100/54 L 97 Nasal Cannula 02/28/24 09:25 75 15 95/50 L 97 Nasal Cannula 02/28/24 09:15 97.5 F L 86 13 94/54 L 96 Nasal Cannula 02/28/24 09:05 79 16 98/53 L 95 Nasal Cannula 02/28/24 08:55 78 12 95/49 L 95 Nasal Cannula 02/28/24 08:45 81 19 92/51 L 96 Oxymask 02/28/24 08:35 82 19 100/48 L 96 Oxymask 02/28/24 08:28 97.7 F 84 20 98/49 L 97 Oxymask 02/28/24 05:38 98.2 F 75 18 138/88 97 Room Air O2 Flow Rate 02/28/24 09:35 2 02/28/24 09:25 2 02/28/24 09:15 2 02/28/24 09:05 2 02/28/24 08:55 2 02/28/24 08:45 5 02/28/24 08:35 5 02/28/24 08:28 5 02/28/24 05:38 Transfer of Care Handoff Completed per policy Notes Mental Status: alert / awake / arousable and participated in evaluation Patient Amnestic to Procedure: Yes Nausea / Vomiting: adequately controlled Pain: adequately controlled Airway Patency, RR, SpO2: stable & adequate BP & HR: stable & adequate Hydration State: stable & adequate Neuraxial Anesthesia: was administered and sensory block is resolving Anesthetic Complications: no major complications apparent and Pt Satisfied with anesthetic care
[2024-02-28] MEDS ORDERED: diphenhydrAMINE 50 MG/ML VIAL IV PRN (09:50)
[2024-02-28] MEDS ORDERED: NALOXONE HCL 0.4 MG/1 ML VIAL/CARP IV PRN ×2 (09:50→10:11)
[2024-02-28] MEDS ORDERED: NALOXONE HCL 1 MG in SODIUM CHLORIDE 0.9% 1,000 ML IV PRN (09:50)
[2024-02-28] MEDS ORDERED: NALOXONE HCL 0.08 MG in SYRINGE 1.8 ML IV PRN (09:50)
[2024-02-28] MEDS ORDERED: NALBUPHINE HCL INJ 10 MG/ML AMP IV PRN (09:50)
[2024-02-28] MEDS ORDERED: DC INTRASPINAL MORPHINE SCH (10:00)
[2024-02-28] MEDS ORDERED: NO NARCOTICS OR SEDATIVES SCH (10:00)
[2024-02-28] MEDS ORDERED: METOCLOPRAMIDE HCL INJ 5 MG/ML 2 ML VIAL IV PRN (10:11)
[2024-02-28] MEDS ORDERED: MAGNESIUM HYDROXIDE SUSP 30 ML UDC PO PRN (10:11)
[2024-02-28] MEDS ORDERED: bisacodyL 10 MG SUPP PR PRN (10:11)
[2024-02-28] MEDS ORDERED: ALUMINUM/MAGNESIUM SUSP 30 ML UDC PO PRN (10:11)
[2024-02-28] MEDS: MoRPHine SULFATE PF 1 MG/ML 10 ML AMP/VIAL INT SPINAL ONE (10:13)
[2024-02-28] MEDS ORDERED: SODIUM CHLORIDE 0.9% 1,000 ML IV SCH (10:45)
[2024-02-28] MEDS ORDERED: TAMSULOSIN HCL 0.4 MG CAP PO SCH (11:00)
[2024-02-28] MEDS: LACTATED RINGER'S 1,000 ML IV SCH (11:34)
[2024-02-28] MEDS: ASPIRIN 81 MG ECTAB PO SCH (11:35)
[2024-02-28] MEDS: LEVOTHYROXINE SODIUM 137 MCG TABLET PO SCH (11:35)
[2024-02-28] MEDS: MULTIVITAMIN TAB PO SCH (11:36)
[2024-02-28] MEDS: ATORVASTATIN 20 MG TAB PO SCH (11:36)
[2024-02-28] MEDS: DOCUSATE SODIUM 100 MG CAP PO SCH (11:37)
[2024-02-28] MEDS: SENNA 8.6 MG TAB PO SCH (11:37)
[2024-02-28] MEDS: KETOROLAC TROMETHAMINE 15 MG/ML VIAL IV SCH (12:00)
[2024-02-28] MEDS: TRANEXAMIC ACID / 0.7% NACL 1,000 MG/100 ML BAG IV SCH (14:38)
[2024-02-28] MEDS: ASCORBIC ACID 500 MG TAB PO SCH (17:02)
[2024-02-28] MEDS: FLUoxetine HCL 10 MG CAP PO SCH (20:02)
[2024-02-28] MEDS: TAMSULOSIN HCL 0.4 MG CAP PO SCH (20:03)
[2024-02-28] MEDS: PANTOprazole 40 MG TAB PO SCH (20:03)
[2024-02-28] MEDS ORDERED: SENNA 8.6 MG TAB PO SCH (21:00)
[2024-02-29 02:42] VITALS: TEMP 97.9
[2024-02-29] MEDS ORDERED: HYDROmorphone INJ 0.5 MG/0.5 ML SYR IV PRN (03:50)
[2024-02-29] MEDS ORDERED: traMADol HCL 50 MG TABLET PO PRN (03:50)
[2024-02-29 07:13] LABS: Basophils # (auto) 0.05 K/uL (0.00-0.20); Basophils % (auto) 0.6 %; Eosinophils # (auto) 0.34 K/uL (0.00-0.50); Hematocrit (blood only) 34.9 % (42.0-52.0); Hemoglobin 11.7 g/dl (14.0-18.0); Immature Granulocytes # (auto) 0.02 K/uL (0.01-0.20); Immature Granulocytes % (auto) 0.2 %; Lymphocytes # (auto) 1.99 K/uL (1.20-3.40); Lymphocytes % (auto) 23.7 %; Mean Corpuscular Hemoglobin 28.7 pg (25.0-34.0); Mean Corpuscular Hgb Conc 33.5 g/dL (32.0-36.0); Mean Corpuscular Volume 85.7 fL (80.0-100.0); Mean Platelet Volume 9.1 fL (9.4-12.4); Monocytes # (auto) 0.76 K/uL (0.11-0.59); Neutrophils # (auto) 5.25 K/uL (1.40-6.50); Neutrophils % (auto) 62.5 %; Platelet Count 185 K/uL (130-400); RDW Coefficient of Variation 13.3 % (11.5-14.5); RDW Standard Deviation 41.6 fL (36.4-46.3); Red Blood Count 4.07 M/uL (4.70-6.10); White Blood Count 8.41 K/ul (4.8-10.8)
[2024-02-29 07:24] LABS: BUN Creatinine Ratio 18.8 (10-20); Calcium 8.4 mg/dl (8.6-10.3); Creatinine Clr Calc Pharmacy 132.5 ml/min; Potassium 4.2 mmol/L (3.5-5.1)
--- NOTE | 2024-02-29 07:55 | Orthopedic Progress Note ---
Date of Service February 29, 2024 Assessment & Plan (1) Status post right hip replacement: Plan: 64-year-old gentleman postop day 1 from a right hip replacement doing well. Pains controlled. Hips located. He is neurologically intact. Plan: 1. DVT prophylaxis including thigh-high teds, SCDs, aspirin twice a day. 2. PT/OT. Weight-bear as tolerated. Right total hip protocol. 3. Pain control. Doing well with current pain regimen. 4. Disposition. Plan is to discharge to home with some home health today if he does okay in therapy. (2) Hypothyroidism: (3) Hyperlipidemia: (4) GERD (gastroesophageal reflux disease): (5) Pre-diabetes: (6) History of total right knee replacement: Admission and Anticipated Discharge Date Admission Date: February 28, 2024 Subjective 64-year-old gentleman postop day 1 from right hip replacement. He is doing pretty well. Pains controlled. Had a good night. No chest pain or shortness of breath. Not feeling dizzy or lightheaded. Physical Exam Physical Exam: Physical examination is a pleasant middle-age male. He is lying in bed this morning looks comfortable. Examination of the right hip and leg reveals leg to be well aligned. Dressings clean dry and intact. Can dorsiflex and plantarflex his foot appropriately. He is neurologically intact. Respiratory: normal respiratory effort, lungs clear to auscultation Gastrointestinal (Abdomen): normal bowel sounds, soft, nontender, no hepatosplenomegaly Results & Data Vital Signs (Past 12 Hours) Vital Signs Temp Pulse Resp BP Pulse Ox O2 Del Method 02/29/24 03:50 16 98 02/29/24 02:54 16 95 02/29/24 02:41 36.6 C 65 16 128/77 95 Room Air 02/29/24 01:53 18 94 02/29/24 00:55 16 97 02/28/24 23:55 16 97 02/28/24 22:59 36.9 C 68 16 130/77 95 Room Air 02/28/24 22:55 16 96 02/28/24 21:54 16 97 02/28/24 20:46 18 96 Laboratory Results Hemoglobin is 11.7. Hematocrit is 34.9. Electrolytes are stable.
[2024-02-29 08:52] VITALS: BP 133/79; PULSE 74; RESP 17; O2SAT 99
[2024-02-29] MEDS: dexAMETHasone 10 MG in SYRINGE 0 ML IV SCH (09:22)
== END 2024-02-29 11:15 | disposition home health service (06) ==
LOC: ASU 05:17 → 3N 05:17

== ENCOUNTER 2025-02-12 05:19 | Observation (INO) ==
--- NOTE | 2025-01-14 12:50 | PAT Medication Instructions ---
Medication Instructions Date of Service January 14, 2025 Home Medications atorvastatin 20 mg tablet 20 mg PO QAM levothyroxine 137 mcg tablet 137 mcg PO QAM omeprazole 20 mg capsule,delayed release 20 mg PO HS tamsulosin 0.4 mg capsule 0.4 mg PO HS clindamycin HCl 300 mg capsule 600 mg PO UD PRN pre dental coQ10 (ubiquinol) 100 mg capsule 200 mg PO QAM acetaminophen 500 mg tablet (Tylenol Extra Strength) 1,000 mg PO UD PRN pain meloxicam 15 mg tablet 15 mg PO DAILY sertraline 25 mg tablet 25 mg PO QAM Continue as directed clindamycin HCl 300 mg capsule 600 mg PO UD PRN pre dental ASK your surgeon for instructions meloxicam 15 mg tablet 15 mg PO DAILY STOP taking 2 weeks before surgery (or as soon as possible if surgery is within 2 weeks) coQ10 (ubiquinol) 100 mg capsule 200 mg PO QAM Take morning of surgery With a small sip of water, OTHERWISE NOTHING TO EAT OR DRINK AFTER MIDNIGHT: atorvastatin 20 mg tablet 20 mg PO QAM levothyroxine 137 mcg tablet 137 mcg PO QAM acetaminophen 500 mg tablet (Tylenol Extra Strength) 1,000 mg PO UD PRN pain (if needed) sertraline 25 mg tablet 25 mg PO QAM Take evening before surgery omeprazole 20 mg capsule,delayed release 20 mg PO HS tamsulosin 0.4 mg capsule 0.4 mg PO HS acetaminophen 500 mg tablet (Tylenol Extra Strength) 1,000 mg PO UD PRN pain (if needed) Other Notes If you have any questions please call us at [phone] or [phone] or [phone] or [phone]
--- NOTE | 2025-01-23 09:53 | Anesthesiology Consultation ---
Date of Service January 23, 2025 Assessment & Plan (1) Encounter for pre-operative examination: - Infectious disease screening: Per assessment on 01/23/25- No known recent infectious disease contacts or current infectious disease symptoms. - Outpatient joint assessment: Pt currently scheduled for inpatient pathway. If surgeon requests review for outpatient joint pathway, patient is not a recommended candidate for outpatient joint program from anesthesia standpoint based on available information. - S/P Right DANE (02/28/24): SAB L3-4 (1 attempt), [facility] Chart Review Chart Review: Acceptable Risk for Surgery and Patient seen in Pre Admission Testing Teaching & Discussion Pre-Anesthesia Teaching/Discussion Notes: Instructed NPO after midnight before surgery,except medications with 15 cc of water. Medication instructions provided according to the PAT guidelines. History Surgery Operation Date: 02/12/25 07:00 Proposed Procedures p Left Total Hip Arthroplasty - Maurilio Myers MD Height/Weight Height: 5 ft 11 in Weight: 105.6 kg Allergies Allergy/AdvReac Type Severity Reaction Status Date / Time amoxicillin Allergy Unknown Rash Verified 01/14/25 11:39 Penicillins Allergy Unknown Rash Verified 01/14/25 11:39 Medications Home Medications Medication Instructions Recorded Confirmed Last Taken atorvastatin 20 mg tablet 20 mg PO QAM 06/16/22 01/14/25 02/27/24 07:30 levothyroxine 137 mcg tablet 137 mcg PO QAM 06/16/22 01/14/25 02/27/24 07:30 omeprazole 20 mg capsule,delayed 20 mg PO HS 06/16/22 01/14/25 02/27/24 22:30 release tamsulosin 0.4 mg capsule 0.4 mg PO HS 06/16/22 01/14/25 02/27/24 22:30 clindamycin HCl 300 mg capsule 600 mg PO UD PRN pre dental 06/28/23 01/14/25 Unknown coQ10 (ubiquinol) 100 mg capsule 200 mg PO QAM 01/30/24 01/14/25 Unknown acetaminophen 500 mg tablet 1,000 mg PO UD PRN pain 01/14/25 01/14/25 Unknown (Tylenol Extra Strength) meloxicam 15 mg tablet 15 mg PO DAILY 01/14/25 01/14/25 Unknown sertraline 25 mg tablet 25 mg PO QAM 01/14/25 01/14/25 Unknown Past Medical History Medical History Anxiety BPH (benign prostatic hyperplasia) GERD (gastroesophageal reflux disease) Controlled, stable per pt History of COVID-19 07/2021- mild symptoms, resolved Hx of basal cell carcinoma Hyperlipidemia Hypothyroidism Pre-diabetes Sensorineural hearing loss (SNHL) of both ears Per records: Borderline normal sloping to severe AU Sleep apnea "Mild-moderate" per home sleep study, has not had follow-up in-lab sleep study yet Exercise / Class Metabolic Activity II 4-5 Yardwork/Stairs/Walk up hill (one FS: No CP, no SOB) Past Family History Family History Other No family history of adverse response to anesthesia Past Surgical History Surgical History H/O Mohs micrographic surgery for skin cancer right shoulder H/O shoulder surgery right shoulder seperation repair H/O wisdom tooth extraction History of colonoscopy History of repair of left rotator cuff Left shoulder arthroscopy (07/14/23): [place]5 [place] [facility] [place] of [place]illect[place] History of total right hip replacement SAB L3-4 (1 attempt), [facility] (02/28/24) History of total right knee replacement 07/2022 Past Anesthesia History No Hx of Anesthesia Complications and No Family Hx of Anesthesia Complications History of PONV No Hx of PONV and No Hx of Motion Sickness Social History Smoking Status: Never smoker Do You Dip or Chew Tobacco: No Hx Alcohol Use: Yes (Remote hx of social use, cone currently) Hx Substance Use: No substance use type: does not use Review of Systems Patient denies chest pain, shortness of breath, dyspnea on exertion, fever, chills, cough, wheezing, palpitations. Physical Exam Vital Signs BP 129/75 P 62 TEMP 97.6 SP02 95%RA RESP 16 Physical Full cervical extension range of motion. Full TMJ range of motion. TMD > 3.5 finger breaths Mallampati Score III Dentition: intact, 2 implants/crowns (side/molar) Lungs: clear throughout to auscultation Cardiac: regular rate and rhythm, no murmurs noted Spine: normal Carotid arteries: negative bruit Extremities: no LE edema Lab Results Anesthesia Preop Results Results Anesthesia Widget: WBC 6.49 K/ul (4.8-10.8) 01/23/25 Hgb 13.9 g/dL (14.0-18.0) L 01/23/25 Hct 40.2 % (42.0-52.0) L 01/23/25 Plt 208 K/uL (130-400) 01/23/25 Na 137 mmol/L (136-145) 01/23/25 K 4.5 mmol/L (3.5-5.1) 01/23/25 Cl 102 mmol/L (98-107) 01/23/25 CO2 29 mmol/L (21-32) 01/23/25 BUN 21 mg/dl (6-23) 01/23/25 Creat 0.75 mg/dl (0.6-1.4) 01/23/25 Glucose Level 106 mg/dl (70-99(Fasting)) H 01/23/25 PT 11.0 Seconds (9.0-12.0) 01/23/25 PTT 25 Seconds (21-31) 01/23/25 INR 1.0 (0.9-1.1) 01/23/25 Blood Type B Positive 01/23/25 Antibody Screen NEGATIVE 01/23/25 Testing Electrocardiogram Date: 01/23/25 SB at 56bpm. Early transition. 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 Chest X-Ray Date: 01/23/25 FINDINGS: Heart size and pulmonary vasculature are normal. No consolidation or pleural effusion. IMPRESSION: No acute findings.
--- NOTE | 2025-02-06 13:10 | History & Physical Report ---
Date of Service February 06, 2025 Assessment & Plan (1) Degenerative joint disease of left hip: 65-year-old gentleman with a history of right hip and knee replacement in the past with significantly progressive left hip arthritis which is gotten singly worse over the past 6 to 8 months. He has failed conservative measures. He is ready to have his hip fixed. Plan: Organ to take him to the operating room do a left total hip placement. The risks met this procedure explained. Informed consent was obtained. Will plan on staying in the hospital overnight. Likely discharge postop day 1. Will use aspirin for DVT prophylaxis. (2) Left knee DJD: (3) History of total right hip replacement: (4) History of total right knee replacement: History of Present Illness Chief Complaint: . Progressive and persistent left hip pain and discomfort. Primary Care Provider: Glen Grande MD . The patient is a 65-year-old gentleman well-known to me from previous right knee and right hip replacements in the past. He has a history of gradual progressive increasing left hip He has a history of gradual progressive increasing left hip pain and discomfort has gotten singly worse over the past 8 months. X-rays initially showed fairly mild arthritis. He did see Dr. Perez had an intra- articular injection which helped him signaling for about 5 days. Since then symptoms have just progressed. Describes groin pain thigh pain pain rating down to his knee and a little lateral hip pain as well and buttocks pain. He had resorted to using a cane to get around. He is having difficulty walking and staying active. He would like to have his hip fixed. Allergies Allergy/AdvReac Type Severity Reaction Status Date / Time amoxicillin Allergy Unknown Rash Verified 01/14/25 11:39 Penicillins Allergy Unknown Rash Verified 01/14/25 11:39 Home Medications Medication Instructions Recorded Confirmed Type atorvastatin 20 mg tablet 20 mg PO QAM 06/16/22 01/14/25 History levothyroxine 137 mcg tablet 137 mcg PO QAM 06/16/22 01/14/25 History omeprazole 20 mg capsule,delayed 20 mg PO HS 06/16/22 01/14/25 History release tamsulosin 0.4 mg capsule 0.4 mg PO HS 06/16/22 01/14/25 History clindamycin HCl 300 mg capsule 600 mg PO UD PRN pre dental 06/28/23 01/14/25 History coQ10 (ubiquinol) 100 mg capsule 200 mg PO QAM 01/30/24 01/14/25 History acetaminophen 500 mg tablet 1,000 mg PO UD PRN pain 01/14/25 01/14/25 History (Tylenol Extra Strength) meloxicam 15 mg tablet 15 mg PO DAILY 01/14/25 01/14/25 History sertraline 25 mg tablet 25 mg PO QAM 01/14/25 01/14/25 History Past Med/Surg History Problem List Encounter for pre-operative examination 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 Trigger finger of left hand Medical History Sensorineural hearing loss (SNHL) of both ears Per records: Borderline normal sloping to severe AU Sleep apnea "Mild-moderate" per home sleep study, has not had follow-up in-lab sleep study yet Pre-diabetes Hx of basal cell carcinoma BPH (benign prostatic hyperplasia) GERD (gastroesophageal reflux disease) Controlled, stable per pt Hypothyroidism Anxiety Hyperlipidemia History of COVID-19 07/2021- mild symptoms, resolved Surgical History History of total right hip replacement SAB L3-4 (1 attempt), [facility] (02/28/24) History of repair of left rotator cuff Left shoulder arthroscopy (07/14/23): [place]5 [place] [facility] [place] of total right knee replacement 07/2022 H/O Mohs micrographic surgery for skin cancer right shoulder History of tonsillectomy H/O wisdom tooth extraction H/O shoulder surgery right shoulder seperation repair History of colonoscopy Family History Other No family history of adverse response to anesthesia Social History Smoking Status: Never smoker Second Hand Exposure: No; Do You Dip or Chew Tobacco: No; Hx Alcohol Use: Yes (Remote hx of social use, cone currently) Hx Substance Use: No Preferred Language: Turkish Communication Ability: Effective Doctor Of Nurse Anesthesia Practice Required: No Beliefs That Will Affect Care: None Current Living Situation: Spouse and Family Current Living Situation Comment: and adult son Feels Safe at Home: Yes Assistive Devices: Other Review of Systems All systems reviewed & are unremarkable except as noted in HPI & below. Physical Exam . Physical examination reveals a pleasant middle-age male. Looks to be in good health. Examination left hip and leg reveal patient walks with an antalgic gait. Clearly limps on the left side. Is using a cane to walk. His hip is very stiff with limited internal rotation in neutral which recreates his pain. Negative straight leg raise. He is neurologically intact. Constitutional WD/WN, vitals as above Respiratory normal respiratory effort, lungs clear to auscultation Cardiovascular RRR, no murmur, no edema Gastrointestinal (Abdomen) normal bowel sounds, soft, nontender, no hepatosplenomegaly Results & Data Results & Data Laboratory Results . Diagnostic Findings . X-rays of the hip were reviewed. This shows a progressive left hip arthritis. X-rays got singly worse over the past 6 to 8 months. He has got complete loss of superior joint space. He has cystic changes to the femoral head. Not much osteophyte formation. The right hip replacement looks to be in good position without problems. PG Care Time/CCT Total # of Minutes Spent Total Time Spent with Patient: Total time spent is greater than 50% in coordination of care (as documented) at patient's floor/unit and/or counseling patient: Coding Level of Care Code None Diagnoses Degenerative joint disease of left hip M16.12 Left knee DJD M17.12 History of total right hip replacement Z96.641 History of total right knee replacement Z96.651
[2025-02-12] MEDS: FAMOTIDINE 20 MG TAB PO SCH (05:41)
[2025-02-12] MEDS: METOCLOPRAMIDE HCL 10 MG TABLET PO SCH (05:41)
[2025-02-12] MEDS: LR 500ML BOLUS, THEN 15ML/HR IV SCH (05:41)
[2025-02-12] MEDS: LR 60ML/HR IV SCH (05:41)
[2025-02-12] MEDS: ACETAMINOPHEN 500 MG TAB PO SCH ×2 (05:41→14:35)
[2025-02-12] MEDS: CeleBREX 200 MG CAP PO SCH (05:41)
[2025-02-12] MEDS: dexAMETHasone**PF** 10 MG/ML VIAL IV SCH (05:41)
[2025-02-12] MEDS ORDERED: LIDOCAINE 2% 2 ML VIAL/AMP(20MG/ML) INFIL ONE (06:10)
[2025-02-12] MEDS ORDERED: MIDAZOLAM HCL 1 MG/ML 2ML VIAL ONE ×2 (06:10→06:11)
[2025-02-12] MEDS ORDERED: PROPOFOL IV EMULSION 10 MG/ML 100 ML VIAL IV ONE (06:10)
[2025-02-12] MEDS ORDERED: ATROPINE SULFATE 0.1 MG/ML 10ML SYR IV PRN (06:26)
[2025-02-12] MEDS ORDERED: ONDANSETRON INJ 2 MG/ML 2 ML VIAL IV PRN ×2 (06:26→09:42)
[2025-02-12] MEDS ORDERED: BUPIVACAINE 0.5 % 5 MG/1 ML PF 10ML VIAL ONE (06:28)
[2025-02-12] MEDS: TRANEXAMIC ACID 1,000 MG **IV Pre-op IV SCH (06:39)
--- NOTE | 2025-02-12 06:44 | History & Physical Bridge Note ---
Date of Service February 12, 2025 History & Physical Bridge Note I have examined the patient, reviewed the History & Physical and in the interval since the performance of the History & Physical I have noted the following changes of clinical significance: no changes noted
[2025-02-12] MEDS ORDERED: GLYCOPYRROLATE 0.2 MG/ML VIAL ONE (07:26)
[2025-02-12] MEDS: BUPIVACAINE/EPINEPHRINE 0.5% MPF 1:200,000 30 ML VIAL ONE (07:34)
[2025-02-12] MEDS ORDERED: ePHEDrine sulfate 50 MG/5 ML SYR ONE (07:50)
[2025-02-12] MEDS ORDERED: ONDANSETRON INJ 2 MG/ML 2 ML VIAL ONE (08:07)
--- NOTE | 2025-02-12 08:35 | Operative Report ---
PG Post Operative Report Pre & Post Diagnosis Operation Date: 02/12/25 07:00 Pre-Op Diagnosis: Left Hip Degenerative Joint Disease Post-Op Diagnosis: Left Hip Degenerative Joint Disease I identified the patient and participated in the time-out.: Yes Procedure Operation Date: 02/12/25 07:00 Actual Procedures p Left Total Hip Arthroplasty, Uncemented(Left) - Maurilio Myers MD Surgeon Maurilio Myers MD Client Portfolio Manager Song Tesfaye PA-C Estimated Blood Loss 100 Findings Consistent with Post-Op Diagnosis Operative findings of advanced left hip DJD. There is a full-thickness cartilage loss with significant joint effusion. Not much osteophyte formation. Specimens Left femoral head sent for pathology. Anesthesia Type Spinal MAC Complications none Disposition Accompanied Patient To Recovery: No Indications The patient is a 65-year-old gentleman has had a host of orthopedic problems and interventions in the past with an multiple joint replacements. Over the past year he has developed increased pain discomfort in the left hip this got markedly worse over the past 8 months. The x-rays show progressive hip arthritis. He failed conservative measures and elected to proceed with total hip arthroplasty. Description of Procedure Operative implants consist of: 1. Biomet G7 size 56 mm acetabular shell. 2. 6.5 cancellous acetabular screws 1 of 35 mm in length and 1 to 25 mm length. 3. Laura hole gunner's mate g. 4. Highly cross-linked polyethylene liner with a 56 mm outer diameter and 36 mm inner diameter with a beltran placed inferior and posterior. 5. DePuy Karaya size 12 KLA femoral stem. 6. +5/36 mm ceramic articular ball. The patient was taken to the op room, identified, and placed on the operating table in the supine position. All contact areas were appropriately padded. IV antibiotics were provided by the anesthesia team along with a gram of TXA. A spinal anesthetic had been implemented holding area. The patient was then placed in the right lateral decubitus position. An axillary roll was placed Stool Birkett position was used for positioning. Left hip and leg were then prepped and draped in usual sterile fashion. A posterior lateral approach to the left hip was then performed to a curvilinear incision centered over the greater trochanter. Sharp dissection was Through subcutaneous tissues down to level the IT band gluteal fascia. The IT band gluteal fascia then incised longitudinally in line with skin incision. The underlying greater bursa was excised. The piriformis and external rotators along with the posterior hip joint capsule were then released from the posterior aspect of the hip as a single layer. Great care was taken throughout the procedure protect the sciatic nerve at all times. Hip was internally rotated and dislocated. A femoral neck osteotomy cut was made with a Final Cut 10 mm above the lesser trochanter. Femoral head was removed and sent for pathology. The femur was retracted anteriorly and attention then drawn to the acetabulum. The acetabulum labrum was excised. The Pulvinal fat was excised. Sequential reaming of the acetabulum was then performed again with a size 45 and progressing up to 55. I reamed a little bit with a 56 reamer and then placed a 56 mm Biomet acetabular shell in about 4 degrees lateral opening and 20 degrees of anteversion. It was fixed with two 6.5 screws. A trial liner was placed. Attention drawn the femur. The proximal femur was entered with cookie-cutter followed by canal finder. I then broached beginning with a size 8 and progressing up to 12. We got excellent fit of the 12. Trial of the hip and hip was fully stable. The there was a slight bit of a soft tissue laxity. I elected to place a beltran inferior and posterior to maximize his stability as he did not have a lot of stiffness in his hip preoperatively. We elect to place these implants. All trial implants were removed. An apex hole lemonade was placed. A highly cross-linked polyethylene liner was placed. A lip was placed on this liner was placed inferior and posterior. A size 12 KLA femoral stem was impacted in position. A +5/36 mm ceramic articular ball was placed. Hip was located and once again found to be stable. Attention drawn toward closing. The wounds irrigated Was Pulsatile Lavage Solution. I Did Inject Locally with 60 Cc of Half Percent Marcaine with Epinephrine. The Posterior Capsule and External Rotators Were Then Repaired through Drill Holes in the Posterior Trochanter with #2 Tycron Suture. The IT Band Gluteal Fascia Then Closed with #1 PDS Suture Running Fashion. Subcutaneous Tissue Then Closed with 2 Layers the Deep Layer #1 Vicryl Suture in the Subcutaneous Tissues with 2-0 Dexon Suture in a Buried Interrupted Fashion. The Skin Was Then Closed with Skin Tameka. Leg Was Then Cleaned and Dried and a Sterile Dressing with Xeroform, 4 Fours, ABD pad and Medipore tape was applied. The patient then transferred to the recovery room in stable condition. Patient tolerated the procedure well and there were no complications. Song Tesfaye, my physician special ed assistant, was present for the entire procedure. His assistance was essential and required for appropriate patient positioning, prepping and draping, surgical exposure, performing the technical details of the operation, placement the implants, closure of the wound, and placement of the sterile bandage. I attest to the content of the Intraoperative Record and any orders documented therein. Any exceptions are noted below.
--- NOTE | 2025-02-12 08:49 | XRay Report ---
XR hip 1V LT w pelvis CLINICAL HISTORY: Left hip arthroplasty. COMPARISON: Left hip radiographs November 26, 2024. FINDINGS: Alignment of the total left hip arthroplasty is anatomic. There is no periprosthetic fract ure or unexpected radiopaque foreign body. There are skin eve. Right hip arthroplasty is intact. IMPRESSION: Expected findings following total left hip arthroplasty. ACT 112: Negative or not required by law. Electronically signed by: Vazquez Edwards M.D. 02/12/2025 8:48 AM
[2025-02-12] MEDS ORDERED: NON-FORMULARY MEDICATION (Coq10 (Ubiquinol) 100 mg Capsule) PO SCH (09:42)
[2025-02-12] MEDS ORDERED: HYDROmorphone INJ 0.5 MG/0.5 ML SYR IV PRN (09:42)
[2025-02-12] MEDS ORDERED: METOCLOPRAMIDE HCL INJ 5 MG/ML 2 ML VIAL IV PRN (09:42)
[2025-02-12] MEDS ORDERED: NALOXONE HCL 0.4 MG/1 ML VIAL/CARP IV PRN (09:42)
[2025-02-12] MEDS ORDERED: MAGNESIUM HYDROXIDE SUSP 30 ML UDC PO PRN (09:42)
--- NOTE | 2025-02-12 09:44 | Anesthesiology Progress Note ---
Date of Service February 12, 2025 Anesthesia Post Procedure Vital Signs Vital Signs: Temp Pulse Pulse Resp BP Pulse Ox O2 Del Method 02/12/25 09:25 71 20 105/58 L 92 Room Air 02/12/25 09:10 97.5 F L 76 18 113/59 L 97 Room Air 02/12/25 09:00 74 19 109/57 L 93 Room Air 02/12/25 08:50 77 22 101/55 L 95 Room Air 02/12/25 08:40 76 19 102/49 L 93 Room Air 02/12/25 08:30 78 20 103/52 L 98 Oxymask 02/12/25 08:23 97.7 F 81 20 94/53 L 98 Oxymask 02/12/25 05:35 98.2 F 56 L 20 143/83 H 98 Room Air O2 Flow Rate 02/12/25 09:25 02/12/25 09:10 02/12/25 09:00 02/12/25 08:50 02/12/25 08:40 02/12/25 08:30 2 02/12/25 08:23 4 02/12/25 05:35 Transfer of Care Handoff Completed per policy Notes Mental Status: alert / awake / arousable and participated in evaluation Patient Amnestic to Procedure: Yes Nausea / Vomiting: adequately controlled Pain: adequately controlled Airway Patency, RR, SpO2: stable & adequate BP & HR: stable & adequate Hydration State: stable & adequate Neuraxial Anesthesia: was administered and sensory block is resolving Anesthetic Complications: no major complications apparent and Pt Satisfied with anesthetic care
[2025-02-12] MEDS ORDERED: SENNA 8.6 MG TAB PO SCH (10:00)
[2025-02-12] MEDS: SODIUM CHLORIDE 0.9% 1,000 ML IV SCH (10:03)
[2025-02-12] MEDS: MULTIVITAMIN TAB PO SCH (10:27)
[2025-02-12] MEDS: SERTRALINE HCL 50 MG TABLET PO SCH (10:27)
[2025-02-12] MEDS: ATORVASTATIN 20 MG TAB PO SCH (10:27)
[2025-02-12] MEDS: DOCUSATE SODIUM 100 MG CAP PO SCH (10:28)
[2025-02-12] MEDS: ASPIRIN 81 MG ECTAB PO SCH (10:28)
[2025-02-12] MEDS: TRANEXAMIC ACID / 0.7% NACL 1,000 MG/100 ML BAG IV SCH (14:36)
[2025-02-12] MEDS: ASCORBIC ACID 500 MG TAB PO SCH (16:46)
[2025-02-12] MEDS: KETOROLAC TROMETHAMINE 15 MG/ML VIAL IV SCH (17:33)
[2025-02-12] MEDS: TAMSULOSIN HCL 0.4 MG CAP PO SCH (21:05)
[2025-02-12] MEDS: SENNA 8.6 MG TAB PO SCH (21:05)
[2025-02-12] MEDS: ALUMINUM/MAGNESIUM SUSP 30 ML UDC PO PRN (23:23)
[2025-02-13] MEDS: LEVOTHYROXINE SODIUM 137 MCG TABLET PO SCH (06:04)
[2025-02-13 07:39] LABS: Hematocrit (blood only) 34.8 % (42.0-52.0); Hemoglobin 12.3 g/dL (14.0-18.0); Immature Granulocytes # (auto) 0.08 K/uL (0.01-0.20); Immature Granulocytes % (auto) 0.6 %; Mean Corpuscular Hemoglobin 29.3 pg (25.0-34.0); Mean Corpuscular Volume 82.9 fL (80.0-100.0); Platelet Count 237 K/uL (130-400); RDW Standard Deviation 40.6 fL (36.4-46.3); Red Blood Count 4.20 M/uL (4.70-6.10); White Blood Count 13.95 K/ul (4.8-10.8)
[2025-02-13 08:06] VITALS: BP 122/74; PULSE 54; RESP 14; TEMP 97.7; O2SAT 94
[2025-02-13 08:19] LABS: Anion Gap 8.0 (3-11); Blood Urea Nitrogen 14.0 mg/dl (6-23); Calcium 8.3 mg/dl (8.6-10.3); Carbon Dioxide 24.0 mmol/L (21-32); Chloride 105.0 mmol/L (98-107); Creatinine Clr Calc Pharmacy 132.2 ml/min; Glucose 137.0 mg/dl (70-99(Fasting)); Potassium 4.0 mmol/L (3.5-5.1); Sodium 137.0 mmol/L (136-145)
--- NOTE | 2025-02-13 08:34 | Orthopedic Progress Note ---
Date of Service February 13, 2025 Assessment & Plan (1) S/P total left hip arthroplasty: * Continue Current Treatment * Disposition: home * Daily treatment: Physical Therapy/ Occupational Therapy per protocol * Weight bearing status: WBAT, hip precautions * Continue to monitor for ABLA * Pain control * DVT prophylaxis, ASA * Office/hospital f/u 2 weeks for progress check and staple/suture removal * Plan for discharge today pending PT/OT clearance Subjective .Active Problems: S/p left DANE POD 1 65 y/o male s/p left DANE. Doing well overall, pain managed and improved function. Denies fever/chills, chest pain/SOB, nausea/vomiting. Otherwise no complaints. Review of Systems All systems reviewed & are unremarkable except as noted in HPI & below. Physical Exam . * General: Alert and oriented, no acute distress * Constitutional: well-developed, well-nourished. * Respiratory: Normal respiratory effort, no distress * Gastrointestinal: No tenderness to palpation, no rigidity or guarding. * Skin: No rash or lesion. * Neurologic: Grossly normal * Musculoskeletal: left hip surgical dressing CDI, not removed for exam. Otherwise no obvious deformity or overlying skin changes. Diffuse TTP proximal thigh and hip region. Otherwise no specific tenderness of distal thigh, lower leg, foot/ankle. AROM hip flexion intact. AROM foot/ankle intact. Sensation intact plantar/dorsal foot. Brisk capillary refill. Results & Data Results & Data Laboratory Results . Diagnostic Findings . Hip/Pelvis X-Ray 02/12/25 08:29 XR hip 1V LT w pelvis CLINICAL HISTORY: Left hip arthroplasty. COMPARISON: Left hip radiographs November 26, 2024. FINDINGS: Alignment of the total left hip arthroplasty is anatomic. There is no periprosthetic fracture or unexpected radiopaque foreign body. There are skin eve. Right hip arthroplasty is intact. IMPRESSION: Expected findings following total left hip arthroplasty. ACT 112: Negative or not required by law. Electronically signed by: Vazquez Edwards M.D. 02/12/2025 8:48 AM PG Care Time/CCT Total # of Minutes Spent Total Time Spent with Patient: Total time spent is greater than 50% in coordination of care (as documented) at patient's floor/unit and/or counseling patient: Coding Level of Care Code 51975 Post Operative Follow-Up Diagnoses S/P total left hip arthroplasty Z96.642
[2025-02-13] MEDS: dexAMETHasone 10 MG in SYRINGE 0 ML IV SCH (09:42)
== END 2025-02-13 11:04 | disposition home health service (06) ==
LOC: ASU 05:19 → 3N 05:19